=== PATIENT | male | born 1960 | race Caucasian/White ===

== ENCOUNTER 2016-10-29 13:56 | Inpatient (IN) ==
[2016-10-29] MEDS ORDERED: NS 1,000 ML IV ONE (14:02)
[2016-10-29] MEDS ORDERED: ZOFRAN IV ONE (14:02)
[2016-10-29 14:13] LABS: MANUAL DIFF NEEDED? NO
[2016-10-29 14:27] LABS: BASO% 0.2 % (0.0-0.8); EOS# 0.01 X1000 (0.0-0.7); EOS% 0.1 % (0.0-10.0); HEMATOCRIT 36.5 % (42.0-52.0); HEMOGLOBIN 12.9 g/dL (14.0-18.0); IMM GRAN# 0.03 X1000 (0.0-0.04); IMM GRAN% 0.2 % (0.0-0.5); LYMPH% 16.6 % (20.5-51.1); MCH 30.4 PG (27-31); MCHC 35.3 g/dL (33-37); MCV 85.9 FL (81-99); MONO# 0.92 X1000 (0.11-0.59); MONO% 7.3 % (1.7-9.3); MPV 10.7 FL (7.4-10.4); NEUT% 75.6 % (42.2-75.2); PLT 376 X1000 (130-400); RBC 4.25 XMIL (4.7-6.1)
[2016-10-29 14:44] LABS: ALBUMIN 4.4 g/dL (3.5-5.0); CALCIUM 9.5 mg/dL (8.8-10.2); MAGNESIUM 2.1 mg/dL (1.5-2.7); POTASSIUM 3.6 mmol/L (3.5-5.1); TOTAL BILIRUBIN 0.33 mg/dL (0.20-1.00); TOTAL PROTEIN 7.4 g/dL (6.3-8.3)
--- NOTE | 2016-10-29 14:55 | Diag Imaging Result Doc PS360 ---
EXAM: HEAD W/O CONTRAST INDICATION: unresponsive COMPARISON: None. FINDINGS: There is no definite acute infarct given the limited sensitivity of CT versus MRI. There is no discrete intracranial mass, mass effect, or intracranial hemorrhage. There is fairly extensive left maxillary sinus mucosal disease and minimal ethmoid and sphenoid sinus mucosal disease. IMPRESSION: 1.No evidence of acute intracranial pathology. 2.Paranasal sinus mucosal disease. Electronically signed by Cuauhtemoc Bains 10/29/2016 2:52 PM
--- NOTE | 2016-10-29 15:03 | Diag Imaging Result Doc PS360 ---
EXAM: CHEST-PORTABLE INDICATION: AMS TECHNIQUE: One view COMPARISON: 08/10/2015 FINDINGS: There is a healed rib fracture on the right. The lungs are grossly clear. There is no discrete pleural fluid collection or pneumothorax. The cardiomediastinal silhouette and central vasculature are grossly unremarkable. IMPRESSION: No evidence of acute pathology by plain radiograph. Electronically signed by Cuauhtemoc Bains 10/29/2016 3:01 PM
[2016-10-29 15:05] LABS: URINE CULTURE NEEDED? NO; URINE MICRO REVIEW NEEDED? NO; URINE SOURCE CATH
[2016-10-29 15:09] LABS: ALLEN TEST YES; BE -2.3 mmoll (-3.0-3.0); BLOOD TYPE ARTERIAL; DRAW SITE R RADIAL; METHB 0.8 % (0.0-1.5); O2(CT) 15.4 mL/dL (15.0-23.0); PCO2(98.6) 48 mmHg (35-45); PO2(98.6) 85 mmHg (60-100); SAMPLE BLOOD; SAO2 98.1 % (95.0-100.0); THB 11.4 g/dL (11.5-17.4); pH(98.6) 7.31 (7.35-7.45)
[2016-10-29 15:11] LABS: BILIRUBIN URINE NEGATIVE (NEGATIVE); BLOOD URINE NEGATIVE (NEGATIVE); COLOR YELLOW; GLUCOSE URINE NEGATIVE (NEGATIVE); LEUKOCYTES URINE NEGATIVE (NEGATIVE); NITRITE URINE NEGATIVE (NEGATIVE); PROTEIN URINE 30 mg/dL (NEGATIVE); SP GRAVITY URINE 1.022; TURBIDITY URINE CLEAR (CLEAR); UROBILINOGEN URINE NORMAL (NORMAL)
[2016-10-29 15:11] LABS: MODALITY ROOM AIR
[2016-10-29 15:12] LABS: UR EPITHELIAL CELLS <10 /HPF (<10); URINE BACTERIA NEGATIVE /HPF; URINE RBC <10 /HPF (<10); URINE WBC <10 /HPF (<10)
[2016-10-29] MEDS ORDERED: D5W 500 ML IV ONE (15:16)
[2016-10-29 15:25] LABS: UR AMPHETAMINES QUAL PRESUMPTIVE POSITIVE (NONE DETECT); UR BARBITUATES QUAL NONE DETECTED (NONE DETECT); UR BENZODIAZEPIN QUAL PRESUMPTIVE POSITIVE (NONE DETECT); UR CANNABINOIDS QUAL PRESUMPTIVE POSITIVE (NONE DETECT); UR COCAINE QUAL PRESUMPTIVE POSITIVE (NONE DETECT); UR METHADONE QUAL PRESUMPTIVE POSITIVE (NONE DETECT); UR OPIATES QUAL NONE DETECTED (NONE DETECT); UR OXYCODONE QUAL NONE DETECTED (NONE DETECT); UR PCP QUAL NONE DETECTED (NONE DETECT)
--- NOTE | 2016-10-29 15:29 | PROVIDER DOCUMENTATION ---
This chart was entered by Nga Hanson Scribe, acting as scribe for Saima Irizarry MD. [id number] Abuse/Overdose - General Chief Complaint: Syncope Stated Complaint: syncope/heat realted illness Time Seen by Provider: 10/29/16 14:01 Source: patient Allergies/Adverse Reactions: Allergies Allergy/AdvReac Type Severity Reaction Status Date / Time No Known Allergies Allergy Verified 09/22/16 01:10 Home Medications: Home Medication List Medication Instructions Recorded Confirmed Last Taken Type Cyclobenzaprine [Flexeril] 10 mg PO TID #14 tablet 09/22/16 Unknown Rx Ketorolac [Toradol] 10 mg PO Q8H PRN PRN #15 tablet 09/22/16 Unknown Rx Methylprednisolone [Medrol Dosepak] 4 mg PO DIRECTED #1 package 09/22/16 Unknown Rx - History of Present Illness-Drug/Alcohol Nature of Presenting Problem: Pt is a 56 year old male who came to the ED with a cc of AMS. Pt was found unresponsive in the yard. Pt cousin reports that the pt does drugs. Review of Systems - Adult - REVIEW OF SYSTEMS - ADULT ROS:: unobtainable per condition Constitutional: reports: see salvador GAR Eyes: reports: no symptoms reported Cardiovascular: reports: no symptoms reported Respiratory: reports: no symptoms reported All Other Systems: Reviewed and Negative Past History - Adult - PAST MEDICAL HISTORY-ADULT Review of Records: reports: Nursing Assessment Review Major Childhood Illnesses: reports: denies history Cardiovascular: reports: denies history Respiratory: reports: denies history Gastrointestinal: reports: denies history Obstetrical/Gynecological: reports: denies history Genitourinary: reports: denies history Musculoskeletal: reports: arthritis, chronic pain Neurological: reports: denies history Psychiatric: reports: anxiety Endocrine/Immune: reports: denies history Other Conditions: reports: denies history - PRIOR SURGERIES/PROCEDURES Surgical/Procedure History: reports: tonsillectomy - IMMUNIZATION STATUS Childhood Immunizations: See Nurse Assessment Flu Vaccine: See Nurse Assessment - FAMILY HISTORY Family History: reviewed, not pertinent Physical Exam-General - PHYSICAL EXAM-ADULT Initial Vital Signs Reviewed: Yes - CONSTITUTIONAL General Appearance: no apparent distress, obtunded - EYES Eyes: PERRL/EOMI - HEAD, EARS, NOSE, MOUTH & THROAT HENMT: normocephalic/atraumatic, moist mucous membranes - NECK Neck: non-tender - RESPIRATORY Respiratory: chest non-tender, lungs clear - CARDIOVASCULAR Cardiovascular: normal peripheral pulses, regular rate, rhythm - GASTROINTESTINAL (ABDOMEN) Abdominal Exam: normal bowel sounds, non tender, soft - MUSCULOSKELETAL Back Exam: normal inspection, no CVA tenderness Extremity: normal range of motion - SKIN Integumentary: normal color, rash (lower extremities) - NEUROLOGIC Neurologic: grossly normal - PSYCHIATRIC Psych/Mental Status: normal mood/affect, normal thought content, normal thought process, oriented x 3 Progress - PLAN OF CARE/RESULTS Progress/Plan/Lab Results: Vital Signs - 8 hr 10/29/16 14:29 10/29/16 15:30 10/29/16 15:38 Temperature 94.7 F L 94.1 F L Pulse Rate 63 63 Respiratory Rate 19 16 Blood Pressure 124/79 97/65 O2 Sat by Pulse Oximetry 96 97 Laboratory Results - last 24 hr 10/29/16 10/29/16 10/29/16 13:59 13:59 13:59 WBC 12.66 H RBC 4.25 L Hgb 12.9 L Hct 36.5 L MCV 85.9 MCH 30.4 MCHC 35.3 RDW Std Deviation 14.3 Plt Count 376 MPV 10.7 H Immature Gran % (Auto) 0.2 Neut % (Auto) 75.6 H Lymph % (Auto) 16.6 L Edmunds % (Auto) 7.3 Eos % (Auto) 0.1 Baso % (Auto) 0.2 Immature Gran # (Auto) 0.03 Neut # (Auto) 9.57 H Lymph # (Auto) 2.10 Edmunds # (Auto) 0.92 H Eos # (Auto) 0.01 Baso # (Auto) 0.03 Specimen Type Sample Site pH pCO2 pO2 HCO3 Base Excess Oxyhemoglobin ABG O2 Sat (Calculated) ABG O2 Saturation ABG Carboxyhemoglobin ABG Methemoglobin Hans Test A-a O2 Difference Total Hemoglobin Lactate Liter Flow Blood Gas Modality FiO2 % Sodium 145 Potassium 3.6 Chloride 106 Carbon Dioxide 22 L Anion Gap 17 BUN 20 Creatinine 1.3 H Estimated GFR/1.73 m2 57 BUN/Creatinine Ratio 15 Glucose 74 Calculated Osmolality 290 Calcium 9.5 Magnesium 2.1 Total Bilirubin 0.33 AST 20 ALT 13 Alkaline Phosphatase 66 Creatine Kinase Troponin T < 0.010 Total Protein 7.4 Albumin 4.4 Globulin 3.0 Albumin/Globulin Ratio 1.5 Amylase 230 H Lipase 13 Urine Source Urine Color Urine Turbidity Urine pH Ur Specific [place] Urine Protein Ur Glucose (Stick) Ur Ketones (Stick) Urine Blood Urine Nitrite Urine Bilirubin Urobilinogen Dipstick Urine Leukocytes Urine WBC (Auto) Urine RBC (Auto) U Epithel Cells (Auto) Urine Bacteria (Auto) Urine Opiates Screen Ur Oxycodone Screen Ur Methadone, Qual Ur Barbiturates Screen Ur Phencyclidine Scrn Ur Amphetamines Screen U Benzodiazepines Scrn Urine Cocaine Screen U Cannabinoids Screen Plasma/Serum Ethyl Alc 10/29/16 10/29/16 10/29/16 13:59 13:59 14:57 WBC RBC Hgb Hct MCV MCH MCHC RDW Std Deviation Plt Count MPV Immature Gran % (Auto) Neut % (Auto) Lymph % (Auto) Edmunds % (Auto) Eos % (Auto) Baso % (Auto) Immature Gran # (Auto) Neut # (Auto) Lymph # (Auto) Edmunds # (Auto) Eos # (Auto) Baso # (Auto) Specimen Type Sample Site pH pCO2 pO2 HCO3 Base Excess Oxyhemoglobin ABG O2 Sat (Calculated) ABG O2 Saturation ABG Carboxyhemoglobin ABG Methemoglobin Hans Test A-a O2 Difference Total Hemoglobin Lactate Liter Flow Blood Gas Modality FiO2 % Sodium Potassium Chloride Carbon Dioxide Anion Gap BUN Creatinine Estimated GFR/1.73 m2 BUN/Creatinine Ratio Glucose Calculated Osmolality Calcium Magnesium Total Bilirubin AST ALT Alkaline Phosphatase Creatine Kinase 305 H Troponin T Total Protein Albumin Globulin Albumin/Globulin Ratio Amylase Lipase Urine Source CATH Urine Color YELLOW Urine Turbidity CLEAR Urine pH 6.0 Ur Specific [place] 1.022 Urine Protein 30 A Ur Glucose (Stick) NEGATIVE Ur Ketones (Stick) 10 A Urine Blood NEGATIVE Urine Nitrite NEGATIVE Urine Bilirubin NEGATIVE Urobilinogen Dipstick NORMAL Urine Leukocytes NEGATIVE Urine WBC (Auto) <10 Urine RBC (Auto) <10 U Epithel Cells (Auto) <10 Urine Bacteria (Auto) NEGATIVE Urine Opiates Screen Ur Oxycodone Screen Ur Methadone, Qual Ur Barbiturates Screen Ur Phencyclidine Scrn Ur Amphetamines Screen U Benzodiazepines Scrn Urine Cocaine Screen U Cannabinoids Screen Plasma/Serum Ethyl Alc 10/29/16 10/29/16 14:57 15:00 WBC RBC Hgb Hct MCV MCH MCHC RDW Std Deviation Plt Count MPV Immature Gran % (Auto) Neut % (Auto) Lymph % (Auto) Edmunds % (Auto) Eos % (Auto) Baso % (Auto) Immature Gran # (Auto) Neut # (Auto) Lymph # (Auto) [place] # (Auto) Eos # (Auto) Baso # (Auto) Specimen Type ARTERIAL Sample Site R RADIAL pH 7.31 L pCO2 48 H pO2 85 HCO3 23.1 Base Excess -2.3 Oxyhemoglobin 95.3 ABG O2 Sat (Calculated) 15.4 ABG O2 Saturation 98.1 ABG Carboxyhemoglobin 2.10 ABG Methemoglobin 0.8 Hans Test YES A-a O2 Difference 5.0 Total Hemoglobin 11.4 L Lactate 0.60 Liter Flow 21.0 Blood Gas Modality ROOM AIR FiO2 % 21.0 Sodium Potassium Chloride Carbon Dioxide Anion Gap BUN Creatinine Estimated GFR/1.73 m2 BUN/Creatinine Ratio Glucose Calculated Osmolality Calcium Magnesium Total Bilirubin AST ALT Alkaline Phosphatase Creatine Kinase Troponin T Total Protein Albumin Globulin Albumin/Globulin Ratio Amylase Lipase Urine Source Urine Color Urine Turbidity Urine pH Ur Specific [place] Urine Protein Ur Glucose (Stick) Ur Ketones (Stick) Urine Blood Urine Nitrite Urine Bilirubin Urobilinogen Dipstick Urine Leukocytes Urine WBC (Auto) Urine RBC (Auto) U Epithel Cells (Auto) Urine Bacteria (Auto) Urine Opiates Screen NONE DETECTED Ur Oxycodone Screen NONE DETECTED Ur Methadone, Qual PRESUMPTIVE POSITIVE A Ur Barbiturates Screen NONE DETECTED Ur Phencyclidine Scrn NONE DETECTED Ur Amphetamines Screen PRESUMPTIVE POSITIVE A U Benzodiazepines Scrn PRESUMPTIVE POSITIVE A Urine Cocaine Screen PRESUMPTIVE POSITIVE A U Cannabinoids Screen PRESUMPTIVE POSITIVE A Plasma/Serum Ethyl Alc Orders Category Date Time Status FSBS [Finger Stick Blood Sugar (ED)] DIRECTED Care 10/29/16 15:12 Active [place] [facility] Insertion ORDERED Care 10/29/16 15:00 Active Saline Loc DIRECTED Care 10/29/16 14:02 Active NPO Diet 10/29/16 14:02 Active CHEST-PORTABLE [RAD] Stat Exams 10/29/16 14:18 Completed HEAD W/O CONTRAST [CT] Stat Exams 10/29/16 14:18 Completed ABG [RESP] Routine Lab 10/29/16 15:00 Completed AMYLASE [CHEM] Stat Lab 10/29/16 13:59 Completed CBC WITH ELECTRONIC DIFF [HEME] Stat Lab 10/29/16 13:59 Completed CK TOTAL [CHEM] Stat Lab 10/29/16 13:59 Completed COMPREHENSIVE METABOLIC PANEL [CHEM] Stat Lab 10/29/16 13:59 Completed ETOH [ALCOHOL BLOOD] Stat Lab 10/29/16 13:59 Completed LIPASE [CHEM] Stat Lab 10/29/16 13:59 Completed MAGNESIUM [CHEM] Stat Lab 10/29/16 13:59 Completed TROPONIN T Stat Lab 10/29/16 13:59 Completed URINALYSIS W/POSS RFLX CULT-1 [URINALYSIS] Stat Lab 10/29/16 14:57 Completed URINE DRUG SCREEN Stat Lab 10/29/16 14:57 Completed 0.9% Sodium Chloride Inj [Ns] 1,000 ml Med 10/29/16 14:02 Discontinued IV 999 mls/hr Dextrose 5%-Water Inj [D5w] 500 ml Med 10/29/16 15:16 Active IV 500 mls/hr Ondansetron [Zofran] Med 10/29/16 14:02 Discontinued 4 mg IV NOW ONE EKG [EKG] Stat Ther 10/29/16 14:02 Ordered Result Diagrams: 10/29/16 13:59 10/29/16 13:59 - XRAY 1 XRAY Study: Chest (negative) - CT/MRI 1 CT Study: Head (negative) - CONSULTS/PCP/HOSPITALIST Notification #1 *Consult/PCP/Hospitalist*: Dr. Smith Time Discussed: 15:43 Consult Disposition: Admit Departure - Departure Date of Disposition Decision: 10/29/16 Time of Disposition Decision: 15:43 DIAGNOSIS: Substance abuse Altered mental status Qualifiers: Altered mental status type: unspecified Qualified Code(s): R41.82 - Altered mental status, unspecified Disposition: ADMITTED INPATIENT 09 Certified Medical Emergency: Emergent Condition: Stable Referrals and Follow-Ups: None,PCP [Primary Care Provider] - - Critical Care Note This patient required my direct & personal management of CC.: No This chart was documented by the indicated scribe, (Nga Hanson Scribe) and accurately reflects the services I performed and decisions made by me, Saima Irizarry MD, as attested by the provider's signature.
[2016-10-29] MEDS ORDERED: NS 2,000 ML ONE (15:48)
[2016-10-29] MEDS ORDERED: DUONEB (A & A) INH PRN (16:22)
--- NOTE | 2016-10-29 16:53 | HISTORY AND PHYSICAL ---
CHIEF COMPLAINT: Obtundation. HISTORY OF PRESENT ILLNESS: Mr. Real is a 56-year-old male with a medical history that is largely unknown with the exception of that found on chart review. Apparently he has a history of polysubstance dependence and chronic pain. He was found unresponsive in his yard earlier today and 911 was called. He was brought to the ER at which point he had a head CT done, chest x-ray and labs. All of his diagnostics are within normal limits with the exception of a drug screen which is positive for marijuana, methadone, amphetamines, benzodiazepines and cocaine. Currently the patient is completely unresponsive but his vital signs are stable. He does not localize to pain. He is maintaining his airway and hemodynamics at this time. We do not have a history other than what was obtained by EMS and there is no family at the bedside. He is now going to be admitted to the ICU for further treatment and evaluation. PAST MEDICAL HISTORY: Chronic pain, polysubstance dependence. PAST SURGICAL HISTORY: Tonsillectomy, right knee arthroscopy. SOCIAL HISTORY: Unknown. FAMILY HISTORY: Coronary disease. ALLERGIES: None known. MEDICATIONS: Unknown. REVIEW OF SYSTEMS: Unable to obtain. ALLERGIES: No known drug allergies. PHYSICAL EXAMINATION: VITAL SIGNS: Blood pressure is 142/78, heart rate 56, respiratory rate is 16, O2 saturation is 100% on 5 L nasal cannula, temperature is 97 degrees. GENERAL: This is a chronically ill and disheveled appearing 56-year-old male lying in hospital bed snoring and obtunded. NEUROLOGIC: The patient does not localize the painful stimulus nor does he wake up. HEENT: Head atraumatic and normocephalic. His pupils are pinpoint bilaterally. Oropharynx is dry, trachea is midline. NECK: Supple. No JVD. CHEST: Clear to auscultation bilaterally. CV: Regular rate and rhythm. S1-S2 is noted. No murmurs. GI: Soft, nondistended. Bowel sounds are hypoactive. EXTREMITIES: Without edema, clubbing or cyanosis. Pulses are palpable bilaterally. DIAGNOSTIC DATA: Head CT is negative. Chest x-ray is negative. LAB DATA: WBC 12.66, hemoglobin 12.9, hematocrit 36.5, platelet count is 376,000. ABG on room air pH 7.31, CO2 48, O2 85, bicarb 23, sodium 145, potassium 3.6, chloride 106, CO2 22, anion gap 17, BUN 20, creatinine 1.3, calcium 9.5, magnesium 2.1. LFTs within normal limits. CK 305, troponin negative, amylase 230, lipase 13. UA is negative. Toxicology is positive for methadone, amphetamines, benzodiazepines, cocaine and marijuana. ASSESSMENT AND PLAN: 1. Toxic encephalopathy: At this time patient is maintaining his airway and hemodynamics so will monitor him in the ICU closely with IV fluids and neuro checks. Head CT did not show anything acute. 2. Drug overdose: Intention is unclear as to whether this was intentional or unintentional. We will try to reach family members for history on what happened. We may need discuss this with [facility] once he is medically stable. 3. Mild renal insufficiency: Will give IV fluids and trend his creatinine daily. 4. Mild anemia: Check iron studies and treat accordingly. 5. Deep vein thrombosis prophylaxis with Lovenox. Further recommendations to follow. Dictated by LUCAS Quinones for Anny Serrano MD cc: LUCAS Quinones MD
[2016-10-29 16:54] LABS: FREE T4 1.06 ng/dL (0.93-1.70)
[2016-10-29] MEDS: NS 1,000 ML IV SCH ×2 (16:56→22:53)
[2016-10-29 17:30] LABS: CK INDEX 1.4 (0.0-2.5)
[2016-10-29] MEDS ORDERED: PNEUMOVAX 23 IM ONE (17:45)
[2016-10-29] MEDS: DUONEB (A & A) INH SCH ×2 (19:13→23:38)
[2016-10-30 01:23] LABS: CK INDEX 1.9 (0.0-2.5); CK-MB 4.23 ng/mL (0.0-5.0)
[2016-10-30] MEDS: DUONEB (A & A) INH SCH ×2 (03:06→07:12)
[2016-10-30] MEDS: NS 1,000 ML IV SCH (05:05)
[2016-10-30 05:56] LABS: HEMATOCRIT 37.3 % (42.0-52.0); HEMOGLOBIN 12.8 g/dL (14.0-18.0); MCH 30.1 PG (27-31); MCHC 34.3 g/dL (33-37); MCV 87.8 FL (81-99); MPV 11.2 FL (7.4-10.4); RBC 4.25 XMIL (4.7-6.1)
[2016-10-30 06:48] LABS: AGAP 15; BUN 11 mg/dL (8-22); CALCIUM 8.5 mg/dL (8.8-10.2); CHLORIDE 106 mmol/L (98-107); COSMO 283; POTASSIUM 3.2 mmol/L (3.5-5.1); SODIUM 143 mmol/L (136-145); TCO2 22 mmol/L (25-35)
[2016-10-30 07:27] VITALS: BP 117/71
[2016-10-30] MEDS ORDERED: KLOR-CON PO ONE (08:26)
[2016-10-30 08:32] LABS: CK INDEX 2.2 (0.0-2.5); CK-MB 4.74 ng/mL (0.0-5.0)
[2016-10-30] MEDS ORDERED: LOVENOX SUBQ SCH (09:00)
--- NOTE | 2016-10-31 07:07 | EKG Report ---
Test Performed on : 10/29/2016 2:01:00 PM Test Reason : OD Blood Pressure : / mmHG Vent. Rate : 081 BPM Atrial Rate : 081 BPM P-R Int : 140 ms QRS Dur : 082 ms QT Int : 402 ms P-R-T Axes : 071 066 062 degrees QTc Int : 466 ms Normal sinus rhythm. Normal ECG When compared with ECG of 10-AUG-2015 18:18, No significant change was found Confirmed by Ambrose JACKSON, Toñito Crystal ([id number]) on 10/31/2016 7:14:01 AM
--- NOTE | 2016-11-06 18:58 | DISCHARGE SUMMARY ---
ADMISSION DATE: 10/29/2016 DISCHARGE DATE: 10/30/2016 FINAL DISCHARGE DIAGNOSES: 1. Toxic encephalopathy. 2. Drug overdose. 3. Polysubstance abuse. 4. Leukocytosis. 5. Hypokalemia. HOSPITAL COURSE: Mr. Real is a 56-year-old male, who initially presented to the ER with altered mental status. A urine drug toxicology screen was done and noted to be positive for methadone, amphetamines, cocaine, benzodiazepines, and marijuana. The patient was admitted to the ICU and placed on aggressive IV fluid hydration. By the following morning, the patient was awake and alert. The patient did admit that he has a history of drug abuse. A head CT was done on admission that revealed no evidence of acute intracranial pathology. The patient continued to improve clinically and was cleared for discharge on 10/30/2016. DISCHARGE MEDICATIONS: Tramadol 50 mg p.o. every 6 hours p.r.n. for pain. FOLLOWUP INSTRUCTIONS: The patient has been advised to follow up with his primary care physician in 1 week. cc: Anny Serrano MD
== END 2016-10-30 11:13 | disposition home or self-care (01) ==
LOC: ED 13:56 → ICU 16:02
PROVIDERS: ATTEND Internal Medicine